=== PATIENT | female | born 1995 | race Caucasian/White ===

== ENCOUNTER 2022-11-26 19:26 | Emergency (ER) | payer OTHER ==
[~2022-11-26] VITALS: Ht 167.6 cm; Wt 53.0 kg
[2022-11-26 19:42] VITALS: BP 108/72; O2SAT 100
[2022-11-26] MEDS ORDERED: LIDOCAINE 5% PATCH TOP SCH (20:45)
[2022-11-26] MEDS ORDERED: IBUPROFEN 600MG TABLET PO ONE (20:45)
[2022-11-26] MEDS ORDERED: NAPR-1129 MT (20:48)
[2022-11-26 21:09] VITALS: PULSE 96; RESP 18; TEMP 97.9
== END 2022-11-26 21:10 | disposition home or self-care (01) ==
LOC: ER 19:26
DX: R51.9 Headache, unspecified (principal); M25.562 Pain in left knee; F41.9 Anxiety disorder, unspecified; G89.11 Acute pain due to trauma; V49.49XA Driver injured in collision with other motor vehicles in traffic accident, initial encounter; Y93.89 Activity, other specified; Y92.89 Other specified places as the place of occurrence of the external cause; Y99.8 Other external cause status
CPT/HCPCS: 81025; 99283